=== PATIENT | female | born 1980 | race Caucasian/White ===

== ENCOUNTER 2019-08-06 11:52 | Emergency (ER) | payer OTHER, MEDICAID ==
[~2019-08-06] VITALS: Ht 160 cm; Wt 78.5 kg
[2019-08-06] MEDS ORDERED: MAGIC MOUTHWASH SWISH&SPIT (12:54)
[2019-08-06] MEDS ORDERED: PENICILLIN V P500 MG PO (12:54)
[2019-08-06 13:09] VITALS: BP 141/66
== END 2019-08-06 13:11 | disposition home or self-care (01) ==
LOC: M.ERS 11:52
DX: O26.892 Other specified pregnancy related conditions, second trimester (principal); K12.30 Oral mucositis (ulcerative), unspecified; K01.1 Impacted teeth; Z3A.15 15 weeks gestation of pregnancy; Z98.890 Other specified postprocedural states